=== PATIENT | male | born 2005 | race Caucasian/White ===

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

== ENCOUNTER → 2025-05-18 | Outpatient (REF) | payer OTHER ==
[2025-05-18 14:56] LABS: RSV AMPLIFICATION NEGATIVE (NEGATIVE)
== END ==
LOC: M LAB REF 14:09
PROVIDERS: ATTEND Nurse Practitioner Family
DX: J06.9 Acute upper respiratory infection, unspecified (principal); Z20.828 Contact with and (suspected) exposure to other viral communicable diseases